=== PATIENT | female | born 1945 | race Caucasian/White ===

== ENCOUNTER → 2017-07-09 | Outpatient (CLI) | payer OTHER, MEDICAID | LOC: FIMAGING 08:53 | PROVIDERS: ATTEND Family Medicine | DX: Z12.31 Encounter for screening mammogram for malignant neoplasm of breast (principal); Z80.3 Family history of malignant neoplasm of breast; Z13.820 Encounter for screening for osteoporosis; M85.89 Other specified disorders of bone density and structure, multiple sites ==

== ENCOUNTER → 2017-08-13 | Outpatient (CLI) | payer OTHER, MEDICAID | LOC: FIMAGING 10:21 | PROVIDERS: ATTEND Family Medicine | DX: R92.8 Other abnormal and inconclusive findings on diagnostic imaging of breast (principal) ==

== ENCOUNTER → 2018-10-02 | Outpatient (CLI) | payer OTHER, MEDICAID | LOC: FIMAGING 09:15 ==